=== PATIENT | male | born 1960 | race Caucasian/White ===

== ENCOUNTER 2025-01-28 13:46 | Emergency (ER) | payer OTHER, SELFPAY ==
[2025-01-28 13:50] VITALS: BP 130/114; PULSE 142; RESP 20; TEMP 37; O2SAT 96; BMI 25.8
--- NOTE | 2025-01-28 14:13 | CT_ITS ---
Patient: TEJA CARRASCO Facility:?[facility] RIS Patient ID:?[id number] Site Patient ID:?[id number]. Site :?[id number] Study:?CT-Head WITHOUT-01/28/2025 4:54:06 PM Ordering Physician:Elvira Watters Final Report: INDICATION: Head trauma. TECHNIQUE: CT head without contrast. COMPARISON: None. FINDINGS: Brain: No intra or extra-axial fluid collection, mass or edema. Mild periventricular white matter hypoattenuation no hydrocephalus. Other: No displaced calvarial fracture. Visualized portions of the orbits, mastoids and paranasal sinuses are unremarkable. IMPRESSION: No acute intracranial abnormality. Please note that all CT scans at this facility use dose modulation, iterative reconstruction, and/or weight-based dosing when appropriate to reduce radiation dose to as low as reasonably achievable. Dictated by Rainer Rowan MD @ 01/28/2025 5:07:50 PM Signed by:?Rainer Rowan MD @01/28/2025 5:07:50 PM (Electronic Signature)
--- OUTSIDE RECORDS SUMMARY | 2025-01-28 14:14 | XMS_ITS | Clinical Summary ---
Author Organization [facility] Address [address] [place] [address] Care Team Providers Care Technical Service Representative Name Role Phone Pcp, No Primary Care Provider Unavailabl e Allergies No known active allergies Medications pramipexole (MIRAPEX) 0.5 mg tabletIndicati ons:Restless leg syndrome TAKE ONE TABLET BY MOUTH 2-3 TIMES PER DAY. 360 Tablet 3 4 Active hydrocortisone 25 mg suppositoryInd ications:Hemor rhoids, internal Insert 1 Suppository (25 mg) rectally two times daily. 12 Suppository 5 Active Active Problems Problem Noted Date Diagnosed Date Herniated lumbar intervertebral disc 06/04/2019 Overview (01/04/2022): S/p Left L4-5 hemilaminectomy and discectomy 06/04/19 Encounters Date Type Department Care Team Description 12/02/2024 1:00 PM CDT Office Visit [facility] [address] [place] [address] Mary Bledsoe MD Consult (hemorrhoids) 12/02/2024 Travel 11/20/2024 Telephone [facility] [address] [place] [address] Ryan Perdomo MD Prior Authorization (hydrocortisone 25 mg suppository PA NOT NEEDED) 11/14/2024 12:00 PM CDT Ancillary Procedure [facility] [address] [place] [address] 11/14/2024 11:45 AM CDT Ancillary Procedure [facility] [address] [place] [address] 11/14/2024 10:25 AM CDT Office Visit [facility] [address] [place] [address] Ryan Perdomo MD Musculoskeletal Problem (Low left side back pain, has had surgeries, ongoing/Rt wrist pain, no injury); Concerns (hemorrhoids); Immunization/Injection 11/14/2024 Travel from Last 3 Months Immunizations Immunization Administration Dates Next Due Hepatitis A (Adult) 12/20/2011,05/31/2011 Hepatitis B (Adult) 12/20/2011,06/28/2011,2010 Inactivated Polio Vaccine 09/06/2011 Influenza, IIV3 (Age 6-35 mos) 05/31/2011 Meningococcal Vaccine (Menactra) 09/06/2011 Meningococcal Vaccine (Menomune) 09/06/2011 Td (Age >=7 Years) 07/31/1999,05/24/1991, 979 Tdap 04/18/2023,05/31/2011 Typhoid (injectable) 05/31/2011 Yellow Fever 09/06/2011 Zoster (Shingrix-RZV, recombinant) 11/14/2024 Family History Medical History Relation Name Comments Irregular heart beat Father p[acema ker No Known Problems Mother Relation Name Status Comments Brother 1 Alive Brother 2 Alive Father Alive Mother Alive Sister 1 Alive Sister 2 Alive Social History Tobacco Use Types Packs/Day Years Used Date Smoking Tobacco: Former Smokeless Tobacco: Never Tobacco Cessation:Counseling Given: Yes Comments:2 ppd for about 10 years, quit age 29 Alcohol Use Standard Drinks/Week Comments Not Currently 0 (1 standard drink = 0.6 oz pur e alcohol) PHQ-2 Answer Date Recorded PHQ-2 TOTAL SCORE 1 11/14/2024 Social Connections Answer Date Recorded Do you often feel lonely or isolated from those around you? 0 12/15/2023 Financial Resource Strain Answer Date R ecorded Difficulty of Paying Living Expenses 3 12/15/2023 Difficulty of Paying Living Expenses Not on file 12/15/2023 Food Insecurity Answer Date Recorded Do you worry your food will run out before you are able to buy more? 1 12/15/2023 Transportation Needs Answer Date Record ed Does lack of transportation keep you from medica l appointments? 1 12/15/2023 Does lack of transportation keep you from work, meetings or getting things that you need? 1 12/15/2023 Housing Stability Answer Date Recorded What is your housing situation today? 1 12/15/2023 Utilities Answer Date Recorded Do you have trouble paying f or utilities (for example, heat, electricity, water, phone)? 1 12/15/2023 Education Answer Date Recorded What is the highest level of school you have completed or the highest degree you have received? Associate degree: occupational, technical, or vocational program 11/14/2024 Sex and Gender Information Value Date Recorded Sex Assigned at Not on file Legal Sex Male 3:16 PM CDT Gender Identity Not on file Sexual Orientation Not on file Occupation Industry Job Start Date Job End Date Not on file Not on file Not on file Not on file Obstetrics History Last Filed Vital Signs Vital Sign Reading Time Taken Comments Blood Pressure 112/71 12/02/2024 12:53 PM CDT Pulse 61 12/02/2024 12:53 PM CDT Temperature - - Respiratory Rate - - Oxygen Saturation 98% 12/02/2024 12:53 PM CDT Inhaled Oxygen Concentration - - Weight 88.2 kg (194 lb 6.4 oz) 12/02/2024 12:53 PM CDT Height 180.5 cm (5' 11.06) 11/14/2024 10:35 AM CDT Body Mass Index 27.07 11/14/2024 10:35 AM CDT Plan of Treatment Health Maintenance Due Date Last Done Comments HIV for age 15-65 1977 Hepatitis C screening for ag e 18-79 1980 Pneumococcal series for age 50+ (1 of 1 - PCV) 2012 COVID-19 vaccine series ( - season) 2024 Zoster (shingles) series for age 50+ (2 of 2) 01/09/2025 11/14/2024 Influenza Vaccine (Season Ended) 2025 05/31/20 11 BMI (ht and wt on same day) for age 18+ 11/14/2025 11/14/2024, 01/04/2022 Depression screening for age 12+ 11/14/2025 11/14/2024, 12/15/2023, 01/04/2022 Fecal testing sDNA-FIT ([place] guard) for age 45-75 11/28/2027 11/27/2024 Lipids for age 45-75 11/14/2029 11/14/2024 Tetanus booster 04/18/2033 04/18/2023, 11/0 07/2010, 07/31/1999, Additional history exists RSV vaccine for adults or (1 - 1-dose 75+ series) 2037 Hepatitis B series for 19+ Completed 12/19, 06/28/2011, 05/31/2011 (IA) Tdap Completed 04/18/2023, 05/31/2011 Procedures Procedure Name Priority Date/Time Associated Diagnosis Comments SDNA-FIT EXTERNAL (COLOGUARD) Routine 11/27/2024 8:12 AM CDT Screening for colon cancer LIPID PANEL W REFLEX MEASURED LDL Routine 11/14/2024 12:20 PM CDT Routine general medical examination at a health care facility CBC WITH AUTO DIFFERENTIAL Routine 11/14/2024 12:20 PM CDT Routine general medical examination at a health care facility BASIC METABOLIC PANEL Routine 11/14/2024 12:20 PM CDT Routine general medical examination at a [facility] care facility ALT (SGPT) Routine 11/14/2024 12:20 PM CDT Routine general medical examination at a health care facility PSA TOTAL Routine 11/14/2024 12:20 PM CDT Prostate cancer screening XR WRIST 3 VIEWS RIGHT Routine 11/14/2024 11:50 AM CDT Right wrist pain XR SPINE LUMBAR 2 VIEWS Routine 11/14/2024 11:49 AM CDT Back pain without radiation from Last 3 Months Results * SDNA-FIT EXTERNAL (COLOGUARD) (11/27/2024 8:12 AM CDT) NONINV COLON CA DNA+OCC BLD SCRN STL-IMP Negative Negative 12/02/2024 3:47 AM CDT [facility] (CLIA #:[id number]) Comment: The Cologuard (TM) test was performed on this specimen. NEGATIVE TEST RESULT. A negative Cologuard result indicates a low likelihood that a colorectal cancer (CRC) or advanced adenoma (adenomatous polyps with more advanced pre-malignant features) is present. The chance that a person with a negative Cologuard test has a colorectal cancer is less than 1 in 1500 (negative predictive value >99.9%) or has an advanced adenoma is less than 5.3% (negative predictive value 94.7%). These data are based on a prospective cross-sectional study of 10,000 individuals at average risk for colorectal cancer who were screened with both Cologuard and colonoscopy. (Estefanía Salinas al, N Engl J Med 2014;370(14):1286- 1297) The normal value (reference range) for this assay is negative. COLOGUARD RE-SCREENING RECOMMENDATION: Periodic colorectal cancer screening is an important part of preventive healthcare for asymptomatic individuals at average risk for colorectal cancer. Following a negative Cologuard result, the [employer] and U.S. Multi-Society Task Force screening guidelines recommend a Cologuard re-screening interval of 3 years. References: [employer] Guideline for Colorectal Cancer Screening: https://www.cancer.org/cancer/ltlmo-bhtzrs-lswoez/qmnakdste-wdrbxzbrt-stbanxc/ac s-rec ommendations.html.; Miko DK, Lea CR, Mauricio IslasK, Colorectal Cancer Screening: Recommendations for Physicians and Patients from the U.S. Multi-Society Task Force on Colorectal Cancer Screening , Am J Gastroenterology 2017; 112:8229-2770. TEST DESCRIPTION: Composite algorithmic analysis of stool DNA-biomarkers with hemoglobin immunoassay. Quantitative values of individual biomarkers are not reportable and are not associated with individual biomarker result reference ranges. Cologuard is intended for colorectal cancer screening of adults of either sex, 45 years or older, who are at average-risk for colorectal cancer (CRC). Cologuard has been approved for use by the U.S. FDA. The performance of Cologuard was established in a cross sectional study of average-risk adults aged 50-84. Cologuard performance in patients ages 45 to 49 years was estimated by sub-group analysis of near-age groups. Colonoscopies performed for a positive result may find as the most clinically significant lesion: colorectal cancer [4.0%], advanced adenoma (including sessile serrated polyps greater than or equal to 1cm diameter) [20%] or non- advanced adenoma [31%]; or no colorectal neoplasia [45%]. These estimates are derived from a prospective cross-sectional screening study of 10,000 individuals at average risk for colorectal cancer who were screened with both Cologuard and colonoscopy. (Estefanía Salinas al, N Engl J Med 2014;370(14):7791-0428.) Cologuard may produce a false negative or false positive result (no colorectal cancer or precancerous polyp present at colonoscopy follow up). A negative Cologuard test result does not guarantee the absence of CRC or advanced adenoma (pre-cancer). The current Cologuard screening interval is every 3 years. ([employer] Society and U.S. Multi-Society Task Force). Cologuard performance data in a 10,000 patient pivotal study using colonoscopy as the reference method can be accessed at the following location: www.DealCloud.Kenguru/results. Additional description of the Cologuard test process, warnings and precautions can be found at www.YouOSogReferlyrd.com. Stool specimen (specimen) (Rectum) 11/27/2024 8:12 AM CDT 11/28/2024 9:39 AM CDT us Ryan Perdomo MD URINE Final Re sult [facility] (CLIA #:[id number]) [address] [place] [address], * LIPID PANEL W REFLEX MEASURED LDL (11/14/2024 12:20 PM CDT) CHOLESTEROL, TOTAL 165 <200 mg/dL [facility] HDL CHOLESTEROL 49 > OR = 40 mg/dL [facility] TRIGLYCERIDES 91 <150 mg/dL [facility] LDL-CHOLESTEROL 97 mg/dL (calc) [facility] Comment: Reference range: <100 Desirable range <100 mg/dL for primary prevention; <70 mg/dL for patients with CHD or diabetic patients with > or = 2 CHD risk factors. LDL-C is now calculated using the Anna Marie calculation, which is a validated novel method providing better accuracy than the Friedewald equation in the estimation of LDL-C. Davion SS et al. LETY. 2013;310(46): 1606-4808 (http://education.Yuntaa/faq/CMK175) CHOL/HDLC RATIO 3.4 <5.0 (calc) [facility] NON HDL CHOLESTEROL 116 <130 mg/dL (calc) [facility] Comment: For patients with diabetes plus 1 major ASCVD risk factor, treating to a non-HDL-C goal of <100 mg/dL (LDL-C of <70 mg/dL) is considered a therapeutic option. Blood BLOOD SPECIMEN / Unknown 11/14/2024 12:20 PM CDT 11/14/2024 12:22 PM CDT Narrative [facility] - 11/15/2024 5:24 AM CDT FASTING:NO FASTING: NO Ryan Perdomo MD CHEMISTRY Final Re sult [facility] [address] [place] [address], [facility] [address] [place] [address] * CBC AND DIFFERENTIAL (11/14/2024 12:20 PM CDT) WHITE BLOOD CELL COUNT 6.9 3.8 - 10.8 Thousand/u L [facility] RED BLOOD CELL COUNT 4.91 4.20 - 5.80 Million/uL [facility] HEMOGLOBIN 16.1 13.2 - 17.1 g/dL [facility] HEMATOCRIT 47.8 38.5 - 50.0 % [facility] MCV 97.4 80.0 - 100.0 fL [facility] MCH 32.8 27.0 - 33.0 pg [facility] MCHC 33.7 32.0 - 36.0 g/dL [facility] Comment: For adults, a slight decrease in the calculated MCHC value (in the range of 30 to 32 g/dL) is most likely not clinically significant; however, it should be interpreted with caution in correlation with other red cell parameters and the patient's clinical condition. RDW 12.3 11.0 - 15.0 % [facility] PLATELET COUNT 227 140 - 400 Thousand/u L [facility] MPV 10.5 7.5 - 12.5 fL [facility] ABSOLUTE NEUTROPHILS 3,002 1,500 - 7,800 cells/uL [facility] ABSOLUTE LYMPHOCYTES 3,236 850 - 3,900 cells/uL [facility] ABSOLUTE MONOCYTES 552 200 - 950 cells/uL [facility] ABSOLUTE EOSINOPHILS 83 15 - 500 cells/uL [facility] ABSOLUTE BASOPHILS 28 0 - 200 cells/uL [facility] NEUTROPHILS 43.5 % [facility] LYMPHOCYTES 46.9 % [facility] MONOCYTES 8.0 % [facility] EOSINOPHILS 1.2 % [facility] BASOPHILS 0.4 % [facility] Blood BLOOD SPECIMEN / Unknown 11/14/2024 12:20 PM CDT 11/14/2024 12:22 PM CDT Narrative [facility] - 11/15/2024 3:26 AM CDT FASTING:NO FASTING: NO us Ryan Perdomo MD HEMATOLOGY Final Re sult [facility] [address] [place] [address], [facility] [address] [place] [address] * ALT (SGPT) (11/14/2024 12:20 PM CDT) ALT 15 9 - 46 U/L [facility] Blood BLOOD SPECIMEN / Unknown 11/14/2024 12:20 PM CDT 11/14/2024 12:22 PM CDT Narrative [facility] - 11/15/2024 5:24 AM CDT FASTING:NO FASTING: NO Ryan Perdomo MD CHEMISTRY Final Re sult Performing Organization Address [facility]/ZIP Co de Phone Number [facility] [address] [place] [address], [facility] [address] [place] [address] * PSA TOTAL (DIAG OR SCREEN) (11/14/2024 12:20 PM CDT) Pathologist [facility] PSA, TOTAL 1.36 < OR = 4.00 ng/mL [facility] Comment: The total PSA value from this assay system is standardized against the WHO standard. The test result will be approximately 20% lower when compared to the equimolar-standardized total PSA (Juliana David). Comparison of serial PSA results should be interpreted with this fact in mind. This test was performed using the Siemens chemiluminescent method. Values obtained from different assay methods cannot be used interchangeably. PSA levels, regardless of value, should not be interpreted as absolute evidence of the presence or absence of disease. Blood BLOOD SPECIMEN / Unknown 11/14/2024 12:20 PM CDT 11/14/2024 12:22 PM CDT Narrative [facility] - 11/15/2024 4:43 AM CDT FASTING:NO FASTING: NO Ryan Perdomo MD CHEMISTRY Final Re sult Performing Organization Address City/[facility]/ZIP Co de Phone Number [facility] [address] [place] [address], [place] [phone] [facility] [address] [facility] [address] * (ABNORMAL) BASIC METABOLIC PANEL (11/14/2024 12:20 PM CDT) GLUCOSE 77 65 - 139 mg/dL [facility] Comment: Non-fasting reference interval UREA NITROGEN (BUN) 13 7 - 25 mg/dL [facility] CREATININE 0.87 0.70 - 1.35 mg/dL [facility] EGFR 98 > OR = 60 mL/min/1. 73m2 [facility] BUN/CREATININE RATIO SEE NOTE: 6 - 22 (calc) [facility] Comment: Not Reported: BUN and Creatinine are within reference range. SODIUM 137 135 - 146 mmol/L [facility] POTASSIUM 4.5 3.5 - 5.3 mmol/L [facility] CHLORIDE 101 98 - 110 mmol/L [facility] CARBON DIOXIDE 31 20 - 32 mmol/L [facility] ELECTROLYTE BALANCE 5(L) 7 - 17 mmol/L (calc) [facility] CALCIUM 9.4 8.6 - 10.3 mg/dL [facility] Blood BLOOD SPECIMEN / Unknown 11/14/2024 12:20 PM CDT 11/14/2024 12:22 PM CDT Narrative [facility] - 11/15/2024 5:24 AM CDT FASTING:NO FASTING: NO Ryan Perdomo MD CHEMISTRY Final Re sult [facility] [address] [place] [address], [place] [phone] [facility] [address] [place] [address] * XR WRIST 3 OR MORE VIEWS RIGHT (11/14/2024 11:50 AM CDT) Anatomical Region Laterality Modality WRISTS, WRIST R Computed Radiogr aphy 11/17/2024 10:2 7 PM CDT Narrative 11/17/2024 10:27 PM CDT For Patients: As a result of the Cures Act, medical imaging exams and procedure reports are released immediately into your electronic medical record. You may view this report before your referring provider. If you have questions, please contact your health care provider. Indication: Wrist pain. Technique: Right wrist 3 views. Comparison: None. Findings: Bones: Alignment is normal. No fractures or bone lesions. No findings to explain pain. Joint spaces: Joint spaces are well maintained. No degenerative changes. Soft tissues: Unremarkable. Dictated by Turner Ross MD @ 11/17/2024 10:27:46 PM (Electronically Signed) Procedure Note Turner Ross MD - 11/17/2024 For Patients: As a result of the s , medical imagingexams and procedure reports are released immediately into your electronicmedical record. You may view this report before your referring provider.If you have questions, please contact your health care provider. Indication: Wrist pain. Technique: Right wrist 3 views. Comparison: None. Findings: Bones: Alignment is normal. No fractures or bone lesions. No findings toexplain pain. Joint spaces: Joint spaces are well maintained. No degenerative changes. Soft tissues: Unremarkable. Dictated by Turner Ross MD @ 11/17/2024 10:27:46 PM (Electronically Signed) Ryan Perdomo MD GENERAL IMAGING Final Re sult * XR SPINE LUMBAR 2 VIEWS (11/14/2024 11:49 AM CDT) Anatomical Region Laterality Modality LUMBAR SPINE Computed Radiogr aphy 11/17/2024 10:2 5 PM CDT Narrative 11/17/2024 10:25 PM CDT For Patients: As a result of the s Act, medical imaging exams and procedure reports are released immediately into your electronic medical record. You may view this report before your referring provider. If you have questions, please contact your health care provider. INDICATION: Back pain without radiation. TECHNIQUE: Lumbar spine 2 view. COMPARISON: None. FINDINGS: Bone alignment: Within normal limits. Fracture or bone lesion: None. Disc spaces: Moderate degenerative spondylosis at L4-5 and L5-S1. Facet joints: Moderate arthrosis at L4-5 and L5-S1. Soft tissues: Unremarkable. Dictated by Turner Ross MD @ 11/17/2024 10:25:34 PM (Electronically Signed) Procedure Note Turner Ross MD - 11/17/2024 For Patients: As a result of the Cures Act, medical imagingexams and procedure reports are released immediately into your electronicmedical record. You may view this report before your referring provider.If you have questions, please contact your health care provider. INDICATION: Back pain without radiation. TECHNIQUE: Lumbar spine 2 view. COMPARISON: None. FINDINGS: Bone alignment: Within normal limits. Fracture or bone lesion: None. Disc spaces: Moderate degenerative spondylosis at L4-5 and L5-S1. Facet joints: Moderate arthrosis at L4-5 and L5-S1. Soft tissues: Unremarkable. Dictated by Turner Ross MD @ 11/17/2024 10:25:34 PM (Electronically Signed) Ryan Perdomo MD GENERAL IMAGING Final Re sult from Last 3 Months Insurance [facility] [employer] FAMILY [employer] Care Teams Technical Service Representative Relationship Specialty Start Date End Date Pcp, No . PCP - General 01/04/22
--- NOTE | 2025-01-28 14:37 | ED_ITS ---
HPI - General Adult General Date Seen: 01/28/25 Chief complaint: Psychiatric Problem/Disorder Stated complaint: Person in crisis Time Seen by Provider: 01/28/25 13:50 Source: patient, family and police Mode of arrival: other (Police) Limitations: no limitations History of Present Illness HPI narrative: Patient is a 64-year-old male presenting to the emergency department via police for a mental health evaluation. Police were called by patient's because she was concerned he was going to hurt himself. The patient also called 911 himself in states he is not feeling right. When police arrived he was playing in a field with a gun. Per report please ask him what he was going to do and he responded ?you are a smart alberto what you think?The states he has been fully cooperative since they picked him up and answering questions appropriately. When I spoke to the patient he states that he has been feeling like he has had a brain fog ever since she fell and [place] his head in the ocean while on [place] few days ago. They arrived home from their vacation at 02:00 this morning. He denies any suicide attempts in the past. When I asked him what he was going to do with the done he states he likes to do target practice and denies suicidal ideation. States he has thought about suicide in the past. Mom states his main concern right now is his head. He states he thinks he has a concussion. I was able to speak to the to in she states he has a history of bipolar disease. Shows states he hit his head on the sidewalk not in the ocean. Says that he has been having increased depression since he hit his head but he has had issues with depression in the past. She is not aware of any suicidal ideation prior of please did speak to the patient's ex- who was apparently a t the scene and she states he has made threats of suicide and walked off before. Patient denies any visual or auditory hallucinations. Currently denies suicidal or homicidal ideation. Denies chest pain, shortness of breath, abdominal pain, weakness, numbness, nausea, diarrhea Related Data Home Medications ?Medication ?Instructions ?Recorded ?Confirmed pramipexole 0.5 mg tablet 0.5 mg PO BID-TID 07/13/24 0 01/28/25 Allergies Allergy/AdvReac Type Severity Reaction Status Date / Time No Known Drug Allergies Allergy Verified 07/13/24 12:05 Review of Systems Status of ROS: Reports: 10 or more systems reviewed and unremarkable except as noted in History and below PFSH [facility] Social History Smoking Status: Never smoker How often do you have a drink containing alcohol: 2-4 times a month AUDIT-C Alcohol total score: 2 Non-prescribed substance use: denies use Non-prescribed substance use details: says he occasionally uses mushrooms to help with his bi polar disorder Exam Narrative: Exam Narrative: Const: Well-nourished, Well-developed, in mild distress Eyes: PERRL, no conjunctival injection, and symmetrical lids HENT: Atraumatic external nose and ears. Moist mucous membranes. Abrasion to his left forehead. No palpable skull fracture Neck: Symmetric, trachea midline, No thyromegaly. CVS: RRR, No murmurs or gallops. Peripheral pulses 2+ and equal in all extremities RESP: Unlabored respiratory effort. Clear to auscultation bilaterally. GI: Nontender/Nondistended, No rebound or guarding. MSK:Extremities w/o deformity, Normal Active ROM Skin: Warm, Dry. No rashes or lesions. Neuro: Normal Muscle tone, No focal neurological deficits. Psych: Awake, Alert, & Oriented x3. Appropriate mood and affect. Const: Vital Signs, click to edit/add: Vital Signs - 24 hr 01/28/25 13:50 01/28/25 16:00 Temperature 98.6 F Pulse Rate [Pulse Oximeter] 142 H 68 Respiratory Rate 20 16 Blood Pressure [Ri ght Upper Arm] 130/114 H 145/75 H Pulse Oximetry 96 95 Oxygen Delivery Me thod Room Air Room Air Course Vital Signs Vital signs: Initial Vital Signs Temperature 98.6 F 01/28/25 13:50 Temperature Source Temporal Artery Scan 01/28/25 13:50 Pulse Rate 142 H 01/28/25 13:50 Respiratory Rate 20 01/28/25 13:50 Blood Pressure 130/114 H 01/28/25 13:50 Blood Pressure Mean 119 H 01/28/25 13:50 Blood Pressure Position Sitting 01/28/25 13:50 Pulse Oximetry 96 01/28/25 13:50 Oxygen Delivery Method Room Air 01/28/25 13:50 Vital Signs Temperature 98.6 F 01/28/25 13:50 Pulse Rate 142 H 01/28/25 13:50 Respiratory Rate 20 01/28/25 13:50 Blood Pressure 130/114 H 01/28/25 13:50 Pulse Oximetry 96 01/28/25 13:50 Oxygen Delivery Method Room Air 01/28/25 13:50 Temperature 98.6 F 01/28/25 13:50 Pulse Rate 68 01/28/25 16:00 Respiratory Rate 16 01/28/25 16:00 Blood Pressure 145/75 H 01/28/25 16:00 Pulse Oximetry 95 01/28/25 16:00 Oxygen Delivery Method Room Air 01/28/25 16:00 Medications Administered Medications: Generic Name Dose Route Start Last Admin Trade Name Freq PRN Reason Stop Dose Admin Acetaminophen 1,000 mg 01/28/25 21:29 01/28/25 21:32 Acetaminophen 500 Mg Tablet PO 01/28/25 21:30 1,000 mg ONCE ONE Administration Discontinued Medications Generic Name Dose Route Start Last Admin Trade Name Freq PRN Reason Stop Dose Admin Olanzapine 10 mg 01/28/25 18:03 01/28/25 18:11 Olanzapine 5 Mg Tab.Rapdis PO 01/28/25 18:04 10 mg ONCE ONE Administration Ropinirole HCl 1.5 mg 01/28/25 19:46 01/28/25 20:15 Ropinirole 0.25 Mg Tablet PO 01/28/25 19:47 1.5 mg ONCE ONE Administration Medical Decision Making MDM Narrative Medical decision making narrative: Patient is a 64-year-old male brought in by police for possible suicidal ideation. She was placed on a transport hold by them. When he 1st arrived he is very tachycardic at 142. On repeat check he was down to 108. Rest of his vitals are non concerning. He does states she has been having some brain fog since he hit his head and I do believe it is important to do a CT scan for better evaluation. Will also check mental health lab workup. He was placed on 72 hour hold. Patient currently states he does not think he needs inpatient treatment. His is on her way to the hospital. Patient was initially refusing lab work and imaging. Eventually he did agree to the imaging. CT was done showing no acute concerning abnormalities. I spoke to [facility] after they evaluated him and they were concerned enough about him and recommended inpatient treatment. He did not speak to the patient's . Patient's was able to finally come in and I spoke to her. She states that he has a comments with suicide in the past but has never had any suicide attempts that she is aware of. States he has been feeling more depressed for the past few days since his head injury but did not make any direct comments about suicide. She was concerned when he texted her daughter the that he loves her and to always do the right thing. She has been speaking to him for awhile since she arrived and while speaking to her alone she states she does not feel like he will hurt himself. She states she feels safe home with him and he he has never made any threats towards her or her daughter. She believes they are safe with him but would like us to keep him overnight so he could try and calm down a little bit more. She states all the guns have been removed. She does also state that he has always kept his guns locked up and has never seem to be irresponsible with them. She did not seem hesitant with any of these statements and seemed to truly believe what she was saying. Urinalysis returned showing positive for marijuana and cocaine. I spoke to staff in the oncoming providers in pain right now will be to monitor him overnight and re-evaluate in the morning for likely discharge. His states that he does not currently see a therapist or take any psychiatric medication but they have been talking about it even before the recent trip about restarting him on therapy and medication. Lab Data Labs: Lab Results 01/28/25 01/28/25 Range/Units 18:35 20:25 WBC 8.45 (4.50-11.00) K/uL RBC 4.80 (4.30-5.90) m/uL Hgb 15.4 (13.5-17.5) gm/dL Hct 45.9 (37.0-53.0) % MCV 96 (80-100) fL MCH 32 (26-34) pg MCHC 34 (32-36) gm/dL RDW Coeff of Radu 13.1 (11.5-15.5) % Plt Count 215 (140-440) K/uL Neut % (Auto) 65.0 (42.0-72.0) % Lymph % (Auto) 26.2 (20-44) % Cavalier % (Auto) 8.0 (0.0-11.0) % Eos % (Auto) 0.5 (0.0-7.0) % Baso % (Auto) 0.2 (0.0-3.0) % Neut # (Auto) 5.49 (1.7-7.0) K/uL Lymph # (Auto) 2.21 (0.90-2.90) K/uL Cavalier # (Auto) 0.70 (0.00-0.90) K/UL Eos # (Auto) 0.04 (0.00-0.50) K/uL Baso # (Auto) 0.02 (0.00-0.30) K/uL Abs Immat Gran (auto) 0.01 (0.00-0.30) K/uL Imm/Tot Granulo (auto) 0.1 % Sodium 140 (135-149) mmol/L Potassium 3.9 (3.6-5.1) mmol/L Chloride 103 (96-114) mmol/L Carbon Dioxide 28 (20-32) mmol/L Anion Gap 9 (7-15) mEq/L BUN 10 (7-30) mg/dL Creatinine 0.8 (0.5-1.5) mg/dL Estimated Creat Clear 84.07 Estimated GFR 100 ml/min Glucose 113 (60-115) mg/dL Calcium 9.6 (8.4-10.6) mg/dL Salicylates < 1.0 L (1.0-10) mg/dL Urine Opiates Screen Negative (Negative) Ur Oxycodone Screen Negative (Negative) Urine Methadone Screen Negative (Negative) Acetaminophen < 10.0 (10.0-30.0) ug/mL Ur Barbiturates Screen Negative (Negative) U Tricyclic Antidepress Negative (Negative) Ur Phencyclidine Scrn Negative (Negative) Ur Amphetamines Screen Negative (Negative) U Methamphetamines Scrn Negative (Negative) U Benzodiazepines Scrn Negative (Negative) Urine Cocaine Screen POSITIVE A (Negative) U Marijuana (THC) Screen POSITIVE A (Negative) Ur Drug Screen Comment See Note Ethyl Alcohol < 0.01 (0.01-0.03) % ECG Data Attestation: I personally reviewed and interpreted this ECG as follows: Prior ECG tracings: not available for review Interpretation: Normal sinus rhythm with a rate of 67 beats per minute, normal intervals, normal axis, no ST or T-wave abnormalities. Discharge Plan Discharge Clinical Impression: Depression Qualifiers: Depression Type: unspecified Qualified Code(s): F32.A - Depression, unspecified Patient Disposition: Home, Self-Care Condition: Stable Instructions: Depression (ED) Additional Instructions: If he started feeling any concerns and you get her to sign for anyone else please return to the emergency department immediately. It is important to have follow-up with a therapist and a psychiatrist and I do believe you should be restarted on medication. Prescriptions: No Action pramipexole 0.5 mg tablet 0.5 mg PO BID-TID Follow Up/Referrals: Provider,Not a Local [Primary Care Provider, Family Practice] Stand Alone Forms: [facility] Info Instructions
[2025-01-28 16:00] VITALS: BP 145/75; PULSE 68; RESP 16; O2SAT 95
[2025-01-28 18:43] LABS: Hematocrit 45.9 % (37.0-53.0); Hemoglobin* 15.4 gm/dL (13.5-17.5); Immature Granulocytes Abs Auto 0.01 K/uL (0.00-0.30); Immature Granulocytes Pct Auto 0.1 %; Lymphocytes Absolute Auto 2.21 K/uL (0.90-2.90); Mean Corpuscular HGB Conc 34 gm/dL (32-36); Mean Corpuscular Hemoglobin 32 pg (26-34); Mean Corpuscular Volume 96 fL (80-100); RDW Coefficient of Variation % 13.1 % (11.5-15.5); Red Blood Count 4.80 m/uL (4.30-5.90); White Blood Count* 8.45 K/uL (4.50-11.00)
[2025-01-28 18:57] LABS: Slide Review Reflex No
[2025-01-28 19:13] LABS: Chloride* 103 mmol/L (96-114); Sodium* 140 mmol/L (135-149)
[2025-01-28 19:14] LABS: Potassium* 3.9 mmol/L (3.6-5.1)
[2025-01-28 19:16] LABS: Anion Gap 9 mEq/L (7-15); Blood Urea Nitrogen* 10 mg/dL (7-30); Calcium* 9.6 mg/dL (8.4-10.6); Carbon Dioxide* 28 mmol/L (20-32); Creatinine* 0.8 mg/dL (0.5-1.5); Est. Creatinine Clearance* 84.07; Estimated Glomerular Filt Rate 100 ml/min; Glucose* 113 mg/dL (60-115)
[2025-01-28 19:21] LABS: Acetaminophen* < 10.0 ug/mL (10.0-30.0); Ethanol* < 0.01 % (0.01-0.03); Salicylate* < 1.0 mg/dL (1.0-10)
[2025-01-28 20:53] LABS: Cannabinoid Screen Urine POSITIVE (Negative); Methamphetamines Screen Urine Negative (Negative); Tricyclic Antidepressant Urine Negative (Negative)
[2025-01-28] MEDS: ACETAMINOPHEN 500 MG TABLET 1000 MG PO (21:32)
[2025-01-28 22:28] LABS: Appearance Urine Clear (Clear)
--- NOTE | 2025-01-29 05:21 | ED.NURSE ---
Pt compliant with all bed checks this evening. Pt compliant with all cares and walking independently to the bathroom with a steady gait. Pt speaking in coherent sentences and has been pleasant and cooperative with nursing staff all shift supervisor. Pt currently up and eating a sandwich and drinking a Sprite. No further requests from pt at this time.
[2025-01-29 07:22] VITALS: BP 111/66; PULSE 55; RESP 16; TEMP 36.2; O2SAT 95
== END 2025-01-29 13:14 | disposition home or self-care (01) ==
PROVIDERS: Emergency Provider Student in an Organized Health Care Education/Training Program
DX: F32.A Depression, unspecified (principal); F12.90 Cannabis use, unspecified, uncomplicated; F14.90 Cocaine use, unspecified, uncomplicated; R00.0 Tachycardia, unspecified
CPT/HCPCS: 36415; 70450; 80048; 80143; 80179; 80306; 81003; 82077; 85025; 87631; 93005; 99284; 99285; Q3014; A9270